=== PATIENT | male | born 1950 ===

== ENCOUNTER 2025-05-07 19:35 | Emergency (ER) | payer MEDICARE ==
[~2025-05-07] VITALS: Ht 175.3 cm; Wt 90.7 kg
== END 2025-05-07 21:19 | disposition home or self-care (01) ==
LOC: ER 19:35
DX: S01.312A Laceration without foreign body of left ear, initial encounter (principal); W26.9XXA Contact with unspecified sharp object(s), initial encounter
CPT/HCPCS: 12011; 90471; 90715; 99282-25